=== PATIENT | female | born 1930 | race Caucasian/White ===

== ENCOUNTER 2016-03-26 10:28 | Emergency (ER) | payer MEDICARE ==
[~2016-03-26] VITALS: Ht 152.4 cm; Wt 56.4 kg
[~2016-03-26 10:28] MED LIST: AMLO5TAB22 PO; FOLI1TAB PO; HYDR12.56 PO; OMEP20TA PO; PRED1 PO
[2016-03-26 10:30] VITALS: BP 155/76; PULSE 65; RESP 16; TEMP 98.3; O2SAT 96
[2016-03-26] MEDS ORDERED: TRAM50TA PO (10:52)
[2016-03-26] MEDS ORDERED: FOLI1TAB4 PO (10:52)
[2016-03-26] MEDS ORDERED: HYDR12.56 PO (10:52)
[2016-03-26] MEDS ORDERED: FLUT50SP EACH NARE (10:52)
[2016-03-26] MEDS ORDERED: CALC1TAB87 PO (10:52)
[2016-03-26] MEDS ORDERED: CHOL50006 PO (10:52)
[2016-03-26] MEDS ORDERED: OMEP20TA PO (10:52)
[2016-03-26] MEDS ORDERED: CYAN1000P IM (10:52)
[2016-03-26] MEDS ORDERED: AMLO5TAB2 PO (10:52)
[2016-03-26] MEDS ORDERED: VITA400C70 PO (10:52)
[2016-03-26] MEDS ORDERED: PROBCAP11 (10:52)
[2016-03-26] MEDS ORDERED: METH4TAB6 PO (10:52)
[2016-03-26] MEDS ORDERED: MULT-120 PO (10:52)
[2016-03-26] MEDS ORDERED: SODIUM CHLORIDE 0.9% FLUSH 5 ML FLUSH IVF PRN (11:00)
[2016-03-26 11:14] LABS: AUTOMATED NEUTROPHIL # 4.5 TH/MM3 (1.8-7.7); BASOPHIL % 0.7 % (0.0-2.0); EOSINOPHIL # 0.1 TH/MM3 (0-0.4); EOSINOPHIL % 0.9 % (0.0-4.0); HEMATOCRIT 33.8 % (35.0-46.0); LYMPH % 19.9 % (9.0-44.0); LYMPHOCYTE # 1.2 TH/MM3 (1.0-4.8); MEAN CELL VOLUME 68.2 FL (80.0-100.0); MEAN CORPUSCULAR HEMOGLOBIN 21.6 PG (27.0-34.0); MEAN CORPUSCULAR HGB CONC 31.7 % (32.0-36.0); MONO % 7.3 % (0.0-8.0); NEUT % 71.2 % (16.0-70.0); PLATELET COUNT 267 TH/MM3 (150-450); RED BLOOD COUNT 4.96 MIL/MM3 (4.00-5.30); RED CELL DISTRIBUTION WIDTH 17.4 % (11.6-17.2); WHITE BLOOD COUNT 6.3 TH/MM3 (4.0-11.0)
[2016-03-26 11:17] LABS: HEMO FLAGS AUTO DIFF
[2016-03-26 11:21] LABS: CHLORIDE 105 MEQ/L (98-107); POTASSIUM 3.4 MEQ/L (3.5-5.1); SODIUM (NA) 144 MEQ/L (136-145)
[2016-03-26 11:25] LABS: ANION GAP 8 MEQ/L (5-15); BICARBONATE 31.2 MEQ/L (21.0-32.0); BLOOD UREA NITROGEN 15 MG/DL (7-18)
[2016-03-26 11:28] LABS: ALT (GPT) 15 U/L (10-53); AST (GOT) 17 U/L (15-37); GLOMERULAR FILTRATION RATE 62 ML/MIN (>89)
[2016-03-26 11:29] LABS: TOTAL BILIRUBIN ADULT 0.8 MG/DL (0.2-1.0)
[2016-03-26 11:31] LABS: ALKALINE PHOSPHATASE 56 U/L (45-117)
[2016-03-26 11:33] LABS: ACANTHOCYTES 1+ (NORMAL); KERATOCYTES 1+ (NORMAL); OVALOCYTES 1+ (NORMAL); SCAN/DIFF AUTO DIFF CONFIRMED; TARGET CELLS 2+ (NORMAL)
[2016-03-26 11:43] VITALS: BP 145/70; PULSE 63; RESP 20; O2SAT 96
[2016-03-26] MEDS ORDERED: IOHEXOL 350 MG/ML 10 ML VIAL (for RAD DIAG) IV ONE (12:20)
[2016-03-26 12:36] VITALS: BP 143/60; PULSE 71; RESP 20; O2SAT 96
--- NOTE | 2016-03-26 12:52 | RADHPO ---
EXAM DATE/TIME: 03/26/2016 12:08 [place] COMPARISON: No previous studies available for comparison. INDICATIONS : Lower abdominal pain x 2 weeks. Black stool. IV CONTRAST: 85 cc Omnipaque 350 (iohexol) IV ORAL CONTRAST: No oral contrast ingested. RADIATION DOSE: 6.12 CTDIvol (mGy) MEDICAL HISTORY : Hypertension. Hernia, hiatal. SURGICAL HISTORY : None. ENCOUNTER: Initial ACUITY: 2 weeks PAIN SCALE: 5/10 LOCATION: Bilateral lower quadrant TECHNIQUE: Volumetric scanning of the abdomen and pelvis was performed. Using automated exposure control and ad justment of the mA and/or kV according to patient size, radiation dose was kept as low as reasonably achievable to obtain optimal diagnostic quality images. FINDINGS: Examination of the lung bases demonstrates no abnormality. No pleural fluid is identified. No pulmona ry nodules are present. There is hypodensity within the liver compatible with cyst measuring 6 mm in segment 7. The spleen is normal in size and free of focal defects. The gallbladder and pancreas are u nremarkable. No intrahepatic or extrahepatic ductal dilatation is seen. The adrenal glands are unrema rkable. There are simple cysts on the right the largest measuring 5 cm in the lower pole. The left ki dney is unremarkable. Examination of the pelvis demonstrates no evidence of free fluid or pelvic mass. No abnormally enlarg ed inguinal or retroperitoneal lymph nodes are present. The bladder is unremarkable. There is diverti culosis without evidence of diverticulitis. There is a 1.5 cm mass related to the tip of the appendix which may reflect a mucocele or other past including carcinoid. MRI is recommended for further evaluation if clinically indicated. CONCLUSION: 1. No evidence of acute abdominal or pelvic process. No masses are identified. 2. Diverticulosis without evidence of diverticulitis. 3. Mass involving the appendiceal tip. Differential diagnosis includes mucocele as well as carcinoid. MRI is recommended for further evaluation if clinically indicated. Baldomero Fernandez MD on March 26, 2016 at 12:45 Board Certified Radiologist. This report was verified electronically.
--- NOTE | 2016-03-26 13:05 | PD ---
HPI Chief Complaint: Abdominal Pain Time Seen by Provider: 10:53 Travel History International Travel<30 days: No Contact w/Intl Traveler<30days: No Traveled to known affect area: No History of Present Illness HPI Send 85 year-old woman who presents to the emergency department complaining of abdominal pain and dark stools ongoing for the past week or so. States she initially had an episode of dark stools with diarrhea. Following that she had persistent lower abdominal discomfort that she describes as gas-like bloating. She's also had persistent dark stools not quite normal but not really diarrhea either. She's had nausea but no vomiting. She's felt weak. No fevers or chills. She is a history of GERD, beta thalassemia, as well as arthritis. She is on prednisone for the arthritis 2 mg daily. She was on omeprazole for the GERD but stopped that a couple months ago on her own. She has been taking Pepto -Bismol for the past week but states that the dark stool started prior to taking the Pepto-Bismol. No other complaints. History Past Medical History Narrative Medical GERD Beta thalassemia Arthritis Menopausal: Yes Social History Alcohol Use: No Tobacco Use: No Allergies-Medications (Allergen,Severity, Reaction): Coded Allergies: YAZAN Inhibitors (Verified Allergy, Severe, Cough, 03/26/16) Macrodantin (Verified Allergy, Severe, 03/26/16) Amoxicillin (Verified Allergy, Intermediate, Rash, 03/26/16) Reported Meds & Prescriptions Reported Meds & Active Scripts Active Reported Vitamin E-400 (Vitamin E) 400 Unit Cap 1 Tab PO Vitamin D (Cholecalciferol) 5,000 Unit Tab 1 Tab PO WEEKLY Tramadol (Tramadol HCl) 50 Mg Tab 50 Mg PO Q6H PRN Probiotic (Probiotic Product) 1 Cap Cap Multivitamin Women (Multiple Vitamins W/ Minerals) 1 Tab Tab 1 Tab PO DAILY Omeprazole 20 Mg Tab 20 Mg PO DAILY Methylprednisolone 4 Mg Tab 2 Mg PO DAILY Hydrochlorothiazide 12.5 Mg Tab 12.5 Mg PO DAILY Folate (Folic Acid) 1 Mg Tab 1 Mg PO DAILY Fluticasone Nasal [place] 50 Mcg/Act Naspr 50 Mcg EACH NARE BID 50 mcg/spray Cyanocobalamin Inj (Cyanocobalamin) 1,000 Mcg/Ml Inj 1,000 Mcg IM Q30D Calcium 600 with Vitamin D (Calcium Carbonate-Cholecalciferol) 600-400 mg-Unit Tab 1 Tab PO DAILY Amlodipine (Amlodipine Besylate) 5 Mg Tab 5 Mg PO DAILY Review of Systems Except as stated in HPI: all other systems reviewed are Neg Physical Exam Narrative GENERAL: Well-appearing 85 year-old woman, no acute distress. SKIN: Warm and dry. HEAD: Atraumatic. Normocephalic. EYES: Pupils equal and round. No scleral icterus. No injection or drainage. ENT: No nasal bleeding or discharge. Mucous membranes pink and moist. NECK: Trachea midline. No JVD. CARDIOVASCULAR: Regular rate and rhythm. No murmur appreciated. RESPIRATORY: No accessory muscle use. Clear to auscultation. Breath sounds equal bilaterally. GASTROINTESTINAL: Abdomen soft. Minimal lower abdominal tenderness palpation. No rebound or guarding. RECTAL: Some hemorrhoids in the rectal vault. Then clear mucus in the rectal vault. Guaiac negative. No real stool however. MUSCULOSKELETAL: No obvious deformities. No edema. NEUROLOGICAL: Awake and alert. No obvious cranial nerve deficits. Motor grossly within normal limits. Normal speech. Data Data Last Documented VS Vital Signs Date Time Temp Pulse Resp B/P Pulse Ox O2 Delivery O2 Flow Rate FiO2 03/26/16 13:28 53 20 150/83 97 03/26/16 10:30 98.3 Orders Complete Blood Count With Diff (03/26/16 10:53) Comprehensive Metabolic Panel (03/26/16 10:53) Lipase (03/26/16 10:53) Lactic Acid (03/26/16 10:53) Urinalysis - C+S If Indicated (03/26/16 10:53) Iv Access Insert/Monitor (03/26/16 10:53) NPO (03/26/16 10:53) Sodium Chloride 0.9% Flush (Ns Flush) (03/26/16 11:00) Ct Abd/Pel W Iv Contrast(Rout) (03/26/16 ) Iohexol 350 Inj (Omnipaque 350 Inj) (03/26/16 12:20) Labs Laboratory Tests Test 03/26/16 03/26/16 11:00 13:18 White Blood Count 6.3 TH/MM3 Red Blood Count 4.96 MIL/MM3 Hemoglobin 10.7 GM/DL Hematocrit 33.8 % Mean Corpuscular Volume 68.2 FL Mean Corpuscular Hemoglobin 21.6 PG Mean Corpuscular Hemoglobin 31.7 % Concent Red Cell Distribution Width 17.4 % Platelet Count 267 TH/MM3 Mean Platelet Volume 9.4 FL Neutrophils (%) (Auto) 71.2 % Lymphocytes (%) (Auto) 19.9 % Monocytes (%) (Auto) 7.3 % Eosinophils (%) (Auto) 0.9 % Basophils (%) (Auto) 0.7 % Neutrophils # (Auto) 4.5 TH/MM3 Lymphocytes # (Auto) 1.2 TH/MM3 Monocytes # (Auto) 0.5 TH/MM3 Eosinophils # (Auto) 0.1 TH/MM3 Basophils # (Auto) 0.0 TH/MM3 CBC Comment AUTO DIFF Differential Comment AUTO DIFF CONFIRMED Target Cells 2+ Ovalocytes 1+ Acanthocytes 1+ Keratocytes 1+ Sodium Level 144 MEQ/L Potassium Level 3.4 MEQ/L Chloride Level 105 MEQ/L Carbon Dioxide Level 31.2 MEQ/L Anion Gap 8 MEQ/L Blood Urea Nitrogen 15 MG/DL Creatinine 0.86 MG/DL Estimat Glomerular Filtration 62 ML/MIN Rate Random Glucose 98 MG/DL Lactic Acid Level 0.8 mmol/L Calcium Level 8.9 MG/DL Total Bilirubin 0.8 MG/DL Aspartate Amino Transf 17 U/L (AST/SGOT) Alanine Aminotransferase 15 U/L (ALT/SGPT) Alkaline Phosphatase 56 U/L Total Protein 7.4 GM/DL Albumin 3.6 GM/DL Lipase 140 U/L Urine Collection Type CLEAN CATCH Urine Color STRAW Urine Turbidity CLEAR Urine pH 7.5 Urine Specific [place] 1.028 Urine Protein NEG mg/dL Urine Glucose (UA) NEG mg/dL Urine Ketones NEG mg/dL Urine Occult Blood NEG Urine Nitrite NEG Urine Bilirubin NEG Urine Leukocyte Esterase SMALL Urine WBC 0-2 /hpf Urine Squamous Epithelial 0-5 /hpf Cells Microscopic Urinalysis Comment CULT NOT INDICATED MDM Medical Decision Making Medical Screen Exam Complete: Yes Emergency Medical Condition: Yes Interpretation(s) LABS: CBC remarkable for mild microcytic anemia, consistent with previous CMP is unremarkable Lactate 0.[address] abdomen and pelvis: Negative for acute process. Diverticulosis without diverticulitis. There is a mass of the appendiceal tip, differential diagnosis includes mucocele as well as carcinoid, consider MRI. UA negative. Differential Diagnosis Diverticulitis, colitis, GI bleed, UTI, other Narrative Course Medical decision making INITIAL: 85 year-old woman presents to the emergency department complaining of lower abdominal discomfort and loose stools were dark in color for the past week or so. Some nausea. She looks well. CT scan doesn't show any diverticulitis but does show a small mass in the appendiceal tip though need further evaluation. She has described some unusual flushing symptoms or could be consistent with carcinoid syndrome. Looks otherwise well. She has some chronic anemia which is likely related to her beta thalassemia. We will recommend outpatient follow-up. Diagnosis Primary Impression: Abdominal pain Qualified Code: R10.30 - Lower abdominal pain Additional Instructions: Follow-up with your primary doctor in the next 2-3 days. Return to the emergency department for any worsening abdominal pain, bloody diarrhea, or any other new or worsening symptoms. Drink plenty of fluids and stay well-hydrated. Disposition: 01 DISCHARGE HOME Condition: Stable Luis Daniel MD Mar 26, 2016 13:04
[2016-03-26 13:28] VITALS: BP 150/83; PULSE 53; RESP 20; O2SAT 97
[2016-03-26 13:39] LABS: BLOOD, URINE NEG (NEG); GLUCOSE,URINE NEG (NEG); KETONE, URINE NEG (NEG); NITRITE,URINE NEG (NEG); PH, URINE 7.5 (5.0-8.5)
[2016-03-26 13:44] LABS: METHOD OF COLLECTION CLEAN CATCH; URINE COLOR STRAW (YELLW/STRAW)
[2016-03-26 13:45] LABS: COMMENT (UR) CULT NOT INDICATED; CULTURE IF INDICATED CULT NOT INDICATED; SQUAMOUS EPITHELIAL CELL URINE 0-5 /hpf (0-5); WBC, URINE 0-2 /hpf (0-5)
[2016-03-26 14:12] VITALS: BP_SYST 74
== END 2016-03-26 14:20 | disposition home or self-care (01) ==
LOC: PHED 10:28
DX: R10.30 Lower abdominal pain, unspecified (principal); D56.1 Beta thalassemia
CPT/HCPCS: 74177; 80053; 81001; 83605; 83690; 85025; 99285; Q9967

== ENCOUNTER → 2016-04-23 | Outpatient (CLI) | payer MEDICARE ==
[~2016-04-23] MED LIST changes: +AMLO5TAB2 PO; -AMLO5TAB22 PO; +CALC1TAB87 PO; +CHOL50006 PO; +CYAN1000P IM; +FLUT50SP EACH NARE; -FOLI1TAB PO; +FOLI1TAB4 PO; +METH4TAB6 PO; +MULT-120 PO; -PRED1 PO; +PROBCAP11; +TRAM50TA PO; +VITA400C70 PO
[2016-04-23 13:25] LABS: BACTERIA, URINE MANY /hpf; BLOOD, URINE NEG (NEG); COMMENT (UR) CULTURE INDICATED; CULTURE IF INDICATED CULTURE INDICATED; GLUCOSE,URINE NEG (NEG); HYALINE CAST, URINE 1 /lpf (RARE); KETONE, URINE NEG (NEG); MUCUS URINE FEW /lpf (OCC); NITRITE,URINE NEG (NEG); RENAL EPITHELIAL CELLS <1 /hpf; SQUAMOUS EPITHELIAL CELL URINE 1 /hpf (0-5); TRANSITIONAL EPI CELLS, URINE <1 /hpf; URINE COLOR YELLOW (YELLW/STRAW)
== END ==
LOC: PLAB 09:32
PROVIDERS: ATTEND Internal Medicine
DX: I10 Essential (primary) hypertension (principal); R35.0 Frequency of micturition; R19.03 Right lower quadrant abdominal swelling, mass and lump
CPT/HCPCS: 81001; 87077; 87086; 87186

== ENCOUNTER 2016-05-15 07:30 | Observation (INO) | payer MEDICARE ==
[~2016-05-15] VITALS: Ht 152.4 cm; Wt 54.1 kg
[2016-05-15] MEDS ORDERED: BUPIVACAINE/EPINEPHRINE 0.5% PF 30 ML VIAL ONE (07:49)
[2016-05-15] MEDS ORDERED: LACTATED RINGER'S 1000 ML IV SCH (08:00)
[2016-05-15] MEDS ORDERED: VANCOMYCIN HCL 1000 MG ON-CALL/NS 250 ML IV SCH ×2 (08:00)
[2016-05-15] MEDS ORDERED: SODIUM CHLORID 0.9% 500 ML IV SCH (08:00)
[2016-05-15] MEDS ORDERED: INSULIN HUMAN REGULAR 1,000 UNITS/10 ML VIAL SQ PRN (08:00)
[2016-05-15] MEDS ORDERED: METOPROLOL TARTRATE 25 MG TAB PO PRN (08:00)
[2016-05-15 08:58] LABS: AUTOMATED NEUTROPHIL # 4.7 TH/MM3 (1.8-7.7); BASOPHIL # 0.1 TH/MM3 (0-0.2); EOSINOPHIL # 0.1 TH/MM3 (0-0.4); EOSINOPHIL % 1.4 % (0.0-4.0); HEMATOCRIT 32.7 % (35.0-46.0); LYMPH % 16.9 % (9.0-44.0); LYMPHOCYTE # 1.1 TH/MM3 (1.0-4.8); MEAN CELL VOLUME 66.4 FL (80.0-100.0); MEAN CORPUSCULAR HEMOGLOBIN 21.2 PG (27.0-34.0); MEAN CORPUSCULAR HGB CONC 31.9 % (32.0-36.0); MONO % 8.5 % (0.0-8.0); NEUT % 72.2 % (16.0-70.0); PLATELET COUNT 246 TH/MM3 (150-450); RED BLOOD COUNT 4.92 MIL/MM3 (4.00-5.30); RED CELL DISTRIBUTION WIDTH 18.1 % (11.6-17.2); WHITE BLOOD COUNT 6.5 TH/MM3 (4.0-11.0)
[2016-05-15 09:00] LABS: BICARBONATE 30.3 MEQ/L (21.0-32.0); HEMO FLAGS AUTO DIFF; POTASSIUM 3.2 MEQ/L (3.5-5.1)
[2016-05-15] MEDS ORDERED: fentaNYL CITRATE 250 MCG/5 ML AMP ONE (09:32)
[2016-05-15 09:55] LABS: BURR CELLS 1+ (NORMAL); OVALOCYTES 1+ (NORMAL)
[2016-05-15 09:56] LABS: KERATOCYTES OCC (NORMAL); SCAN/DIFF AUTO DIFF CONFIRMED
[2016-05-15] MEDS ORDERED: PROPOFOL 200 MG/20 ML AMP IV ONE (10:45)
[2016-05-15] MEDS ORDERED: LACTATED RINGER'S 1000 ML INJ 1,000 ML IV ONE (10:46)
[2016-05-15] MEDS ORDERED: ONDANSETRON HCL 4 MG/2 ML VIAL IV PUSH ONE (10:46)
[2016-05-15] MEDS ORDERED: ePHEDrine/NS 25 MG/5 ML SYR IV ONE (10:46)
[2016-05-15] MEDS ORDERED: NEOSTIGMINE 3 MG/3 ML SYR IV ONE ×2 (10:46→12:00)
[2016-05-15] MEDS ORDERED: BENZOCAINE 20% ORAL SPR 60 ML CAN MT PRN (11:30)
[2016-05-15] MEDS ORDERED: NALOXONE HCL 0.4 MG/ML AMP IV PRN (11:30)
[2016-05-15] MEDS ORDERED: ACETAMINOPHEN/HYDROcodone 325 MG/5 MG TAB PO PRN (11:30)
[2016-05-15] MEDS ORDERED: diphenhydrAMINE HCL 50 MG/ML VIAL IV PRN (11:30)
[2016-05-15] MEDS ORDERED: SODIUM CHLORIDE 0.9% FLUSH 10 ML FLUSH IV FLUSH PRN (11:30)
[2016-05-15] MEDS ORDERED: ONDANSETRON HCL 4 MG/2 ML VIAL IV PRN (11:30)
[2016-05-15] MEDS ORDERED: Post-op Orders (for Pharmacy) MISC XX ONE (11:30)
[2016-05-15] MEDS ORDERED: MORPHINE SULFATE 4 MG/ML INJ IV PRN (11:30)
[2016-05-15] MEDS ORDERED: MAGNESIUM SULFATE 1 GM PREMIX 100 ML ONE (11:34)
[2016-05-15] MEDS ORDERED: POTASSIUM CHLOR 20 MEQ PREMIX 100 ML ONE (11:34)
--- NOTE | 2016-05-15 11:41 | HHI.PR ---
Immediate Post Op Note Procedure Date: May 15, 2016 Pre Op Diagnosis: (1) Abdominal pain (2) Appendiceal tumor Post Op Diagnosis: (1) Abdominal pain (2) Appendiceal tumor Surgeon: Mauricio Lin Life Skills Teacher(s): staff Procedure: Laparoscopic Appendectomy Findings: mass in tip of appendix, some adhesions Complications: none Specimen(s) removed: appendix Estimated blood loss: 10ml Anesthesia: General, Local Drains: None IVF Patient to: PACU Patient Condition: Good Mauricio Lin MD May 15, 2016 11:41
[2016-05-15] MEDS ORDERED: AMIODARONE 150 MG/D5W 97 ML BOLUS 10 MINUTES IV ONE ×2 (11:45)
[2016-05-15] MEDS ORDERED: DO NOT ADM ANY ANTICOAGULANT DRUGS XX PRN (11:45)
[2016-05-15] MEDS ORDERED: MAGNESIUM SULFATE 1 GM PREMIX 100 ML IV ONE (11:45)
[2016-05-15] MEDS ORDERED: POTASSIUM CHLOR 20 MEQ PREMIX 100 ML IV ONE (11:45)
[2016-05-15] MEDS: SODIUM CHLOR 0.9% 1000 ML INJ 1,000 ML IV SCH ×2 (12:08→16:44)
[2016-05-15] MEDS: SODIUM CHLORIDE 0.9% FLUSH 10 ML FLUSH IV FLUSH SCH ×2 (12:08→20:44)
[2016-05-15] MEDS: ACETAMINOPHEN 1000 MG/100 ML VIAL IV SCH ×2 (12:50→16:43)
[2016-05-15] MEDS ORDERED: PANTOPRAZOLE SOD 40 MG DELAYED RELEASE TAB PO SCH (13:00)
[2016-05-15 16:00] VITALS: BP 117/58; PULSE 63; RESP 16; TEMP 96; O2SAT 94
[2016-05-15] MEDS ORDERED: CYANOCOBALAMIN 1000 MCG/ML VIAL IM SCH (16:00)
[2016-05-15] MEDS ORDERED: PILL SPLITTER OTHER PRN (16:00)
[2016-05-15] MEDS ORDERED: POTASSIUM CHLORIDE 20 MEQ CONTROLLED RELEASE TAB PO ONE (16:00)
[2016-05-15] MEDS: DOCUSATE SODIUM 100 MG CAP PO SCH (16:42)
--- NOTE | 2016-05-15 17:14 | MB ---
cc: SUZAN EDGE MD DATE OF CONSULTATION 05/15/16 1928 DATE OF ADMISSION 04/17/2016 REASON FOR CONSULTATION Medical management. HISTORY OF PRESENT ILLNESS This is a pleasant 85-year-old white female who had initially started with some right lower quadrant abdominal pain for the past week her two. The patient also has a history and bouts of constipation. She took some mag citrate the day before admission to the hospital with positive results states that she also was having some generalized weakness and fatigue but no fevers. The patient was followed up per GI and recently had an EGD and colonoscopy. At that point, the abnormal findings were seen on her appendix. The patient did note some diverticulosis without evidence of diverticulitis and a small mass was noted at the appendageal tip. The patient was seen for surgical consult and had a laparoscopic appendectomy done today. The patient is resting in her room, alert and oriented, tolerated surgical procedure well. Family is at her bedside. PAST MEDICAL HISTORY 1. Gastroesophageal reflux disease, 2. Arthritis. 3. Theta thalassemia. 4. Hypertension 5. Seasonal allergies ALLERGIES YAZAN INHIBITORS AMOXICILLIN MACRODANTIN SOCIAL HISTORY The patient has no use of tobacco, alcohol or illicit drugs. MEDICATIONS 1. Vitamins. 2. Tramadol 3. Probiotics. 4. Omeprazole 5. Methylprednisolone. 6. Hydrochlorothiazide. 7. Folate. 8. Fluconazole Nasal spray. 9. mine 10. Calcium. 11. Amlodipine. REVIEW OF SYSTEMS A 12-point review was done. Positives noted are some right lower quadrant and generalized abdominal discomfort status post her surgery, increased mucoid secretions from chronic allergies, mild shortness of breath which she states is chronic, constipation. Otherwise, negative exam. PHYSICAL EXAMINATION VITAL SIGNS: Temperature is 97.8, pulse 74, respirations 16, blood pressure 103/58 and 100/60, O2 sat 100 on 2 liters nasal cannula. GENERAL: Thin but well-nourished 85-year-old white female looks younger than her stated age resting in the bed, alert, oriented, cooperative. HEENT: Atraumatic, normocephalic. Mucous membranes are moist. NECK: Supple. CARDIAC: Heart sounds S1-S2, soft systolic murmur noted at the lower left sternal border. She has trace of edema. Pulses are intact. PULMONARY: Essentially clear anteriorly and posteriorly. No wheezes, rales or rhonchi. ABDOMEN: Flat, soft, nontender, nondistended. Hypoactive bowel sounds. She does three small laparoscopic incisions which are open to air, clean, dry and intact. MUSCULOSKELETAL: She moves her extremities with purpose. Equal hand in house cra. She can overcome resistance. NEUROLOGIC: She is alert, oriented, a good historian. Speech is clear. No neuro deficits. PSYCHIATRIC: Appropriate affect. LABORATORY DATA WBC count 6.5, RBC 4.92, hemoglobin 10.4, hematocrit 32.7, platelet count 246. Chemistry - sodium 141, potassium 3.2, chloride 101, carbon dioxide 30.3, anion gap 10, BUN 17, creatinine 1.02, GFR 51. Random glucose 98, calcium 9.6. IMAGING STUDIES None for now. ASSESSMENT/PLAN The patient is status post laparoscopic appendectomy. her pain management and postop instructions will be given by her surgeon. We will monitor her vital signs which are currently within normal ranges. The patient is afebrile, pulse and blood pressure are normal. We will evaluate labs. Currently the patient does show some hypokalemia. We will supplement her potassium and recheck her potassium level in the morning. The patient will need cardiac monitoring. Her medications have been reconciled as warranted. DVT prophylaxis with Lovenox 40 mg. Protonix for PUD prophylaxis. PLAN The patient will be out of bed, receive a heart healthy diet. The patient is full code, full aggressive care, and we will monitor her medical needs. We will also place the patient on bowel regimen and monitor for any needs of constipation. Dictated by NICOLE Carlton Suzan Edge MD JP/ /3:41 PM /8:17 AM Patient seen and examined on the day of admission as above. Above-note was not available before to sign Chart was reviewed on day of admission including but not limited to labs radiological data and medications Discussed with RN and NICOLE about plan of care Discussed with patient MTDD
[2016-05-15 20:00] VITALS: BP 108/58; PULSE 63; RESP 20; TEMP 97.8; O2SAT 96
[2016-05-15] MEDS: FLUTICASONE PROPIONATE 50 MCG/ACT 16 GM NASAL SPRAY EACH NARE SCH (20:44)
[2016-05-15 20:45] VITALS: PULSE 54
[2016-05-16] VITALS: BP 124/61; PULSE 59; RESP 20; TEMP 98; O2SAT 97
[2016-05-16] MEDS: ACETAMINOPHEN 1000 MG/100 ML VIAL IV SCH ×2 (00:22→06:41)
[2016-05-16 04:00] VITALS: BP 119/47; PULSE 51; RESP 20; TEMP 98.2; O2SAT 98
[2016-05-16 05:12] LABS: BICARBONATE 31.6 MEQ/L (21.0-32.0); POTASSIUM 3.5 MEQ/L (3.5-5.1)
[2016-05-16] MEDS: SODIUM CHLOR 0.9% 1000 ML INJ 1,000 ML IV SCH ×2 (06:41→08:37)
[2016-05-16 08:00] VITALS: BP 118/58; PULSE 62; RESP 16; TEMP 96.5; O2SAT 93
[2016-05-16 08:04] VITALS: O2SAT 93
[2016-05-16] MEDS: DOCUSATE SODIUM 100 MG CAP PO SCH (08:37)
[2016-05-16] MEDS: SODIUM CHLORIDE 0.9% FLUSH 10 ML FLUSH IV FLUSH SCH (08:37)
[2016-05-16] MEDS: FLUTICASONE PROPIONATE 50 MCG/ACT 16 GM NASAL SPRAY EACH NARE SCH (08:37)
[2016-05-16] MEDS ORDERED: HYDROCHLOROTHIAZIDE 12.5 MG CAP PO SCH (09:00)
[2016-05-16] MEDS ORDERED: PANTOPRAZOLE SOD 20 MG DELAYED RELEASE TAB PO SCH (09:00)
[2016-05-16] MEDS ORDERED: methylPREDNISolone 4 MG TAB PO SCH (09:00)
[2016-05-16] MEDS ORDERED: FOLIC ACID 1 MG TAB PO SCH (09:00)
[2016-05-16] MEDS ORDERED: amLODIPine BESYLATE 5 MG TAB PO SCH (09:00)
[2016-05-16] MEDS ORDERED: ENOXAPARIN SODIUM 40 MG/0.4 ML SYRINGE SQ SCH (10:00)
--- NOTE | 2016-05-16 10:12 | HHI.PR ---
Subjective Remarks Resting in bed Comfortable Alert responsive Family in room Eating her breakfast solid food (Monserrat Adams) Objective Objective Results - Vital Signs Date Time Temp Pulse Resp B/P Pulse Ox O2 Delivery O2 Flow Rate FiO2 05/16/16 08:04 93 21 05/16/16 08:00 96.5 62 16 118/58 93 05/16/16 04:00 98.2 51 20 119/47 98 05/16/16 00:00 98.0 59 20 124/61 97 05/15/16 20:45 54 05/15/16 20:00 97.8 63 20 108/58 96 05/15/16 16:00 96.0 63 16 117/58 94 05/15/16 13:45 70 16 100/60 100 Nasal Cannula 2 05/15/16 13:30 97.8 74 12 103/58 99 Nasal Cannula 2 05/15/16 13:15 74 17 102/53 95 Nasal Cannula 2 05/15/16 13:00 64 12 103/60 94 Nasal Cannula 2 05/15/16 12:45 63 16 104/63 93 Nasal Cannula 2 05/15/16 12:30 69 14 96/55 94 Nasal Cannula 2 05/15/16 12:15 67 15 93/53 94 Nasal Cannula 2 05/15/16 12:00 63 13 93/51 95 Nasal Cannula 2 05/15/16 11:45 75 15 108/56 95 Nasal Cannula 2 05/15/16 11:30 68 14 109/64 98 Nasal Cannula 2 05/15/16 11:15 80 13 107/66 94 Nasal Cannula 2 05/15/16 11:00 79 16 130/77 97 Nasal Cannula 2 05/15/16 10:54 97.8 95 15 130/65 97 Nasal Cannula 2 I/O 05/15/16 05/15/16 05/15/16 05/16/16 05/16/16 05/16/16 07:00 15:00 23:00 07:00 15:00 23:00 Intake Total 1200 ml 599 ml 543 ml Output Total 900 ml 1000 ml Balance 1200 ml -301 ml -457 ml Intake Oral 240 ml 0 ml IV Total 200 ml 359 ml 543 ml Other 1000 ml Output Urine Total 900 ml 1000 ml # Voids 1 # Bowel Movements 1 (Monserrat Adams) Result Diagram: 05/15/16 0819 05/16/16 0334 ROS General: Weakness (generalized mild), Other (10 point ROS done positives include some generalized weakness minimal mild abdominal pain otherwise systems unremarkable or negative) GI: Abdominal Pain (mild status post laparoscopic appendectomy), Other (no BM yet) (Monserrat Adams) Physical Exam Physical Exam PHYSICAL EXAMINATION GENERAL: This is a well-developed, well-nourished female who appears to be in no acute distress. She is alert and awake, responsive HEAD: Normocephalic without any lesion or mass noted. Facial features appear symmetric. OROPHARYNGEAL: Oropharynx without erythema or edema. NECK: Supple. No nuchal rigidity or lymphadenopathy. Trachea midline without deviation. CARDIAC: Regular rhythm, regular rate, S1 and S2 are heard. Murmur none; no gallops or rubs. LUNGS: Clear to auscultation bilaterally. No wheeze, no rhonchi or rale. No use of accessory muscles on inspiration or expiration. ABDOMEN: Soft, nontender, no organomegaly or masses. Bowel sounds are heard in all four quadrants. Small surgical incisions 3, open to air clean dry and intact no erythema no edema EXTREMITIES: no edema. Pulses equal bilateral. NEUROLOGICAL: Patient mood and affect appropriate. No focal deficit SKIN:Warm and moist Objective Remarks I'm feeling really good today. (Monserrat Adams) A/P Assessment and Plan status post laparoscopic appendectomy. her pain management and postop instructions will be given by her surgeon. Appreciate input vital signs reviewed. Patient is afebrile, all other vitals are within normal range labs. Hypokalemia resolved potassium level 3.5. Acute kidney injury normal B UN and creatinine today . DVT prophylaxis with Lovenox Protonix for PUD prophylaxis. Increase activity day with patient to be up in room in chair. Explained to patient and daughter Appetite good eating solid food Bowel regimen, no BM yet, we will monitor Discharge planning within the next day or 2, when released by surgeon Discharge Planning Initiated Discussed With: Nurse, Family, Other (Dr. Edge, seen on his behalf) (Monserrat Adams) Assessment and Plan pt seen and examined pt is walking around without any problem pain is controlled examined as above meds and labs reviwed notes reviewed plan of care dora luna pt is ok medically for dc home to follow pcp and sx as oupt (Anais Edge MD) Monserrat Adams May 16, 2016 10:12 Anais Edge MD May 16, 2016 12:48
--- NOTE | 2016-05-16 10:54 | EKG ---
Date Performed: 05/15/2016 Time Performed: 11:23:02 PTAGE: 85 years EKG: ATRIAL FIBRILLATION BORDERLINE LEFT AXIS DEVIATION ABNORMAL RHYTHM ECG PREVIOUS TRACING : 05/15/2016 08.05 DOCTOR: Yamile De Leon Interpretating Date/Time 05/16/2016 10:53:02
--- NOTE | 2016-05-16 10:59 | EKG ---
Date Performed: 05/15/2016 Time Performed: 08:05:13 PTAGE: 85 years EKG: Sinus rhythm WITH FIRST DEGREE AV BLOCK MARKED LEFT AXIS DEVIATION POSSIBLE ANTERIOR MYOCARDIAL INFARCTION , PROB ABLY OLD ABNORMAL ECG PREVIOUS TRACING : 07/18/2013 20.09 DOCTOR: Yamile De Leon Interpretating Date/Time 05/16/2016 10:57:03
--- NOTE | 2016-05-16 12:35 | HHI.PR ---
Subjective Subjective Notes feels fine, wants to go home, no problems at all Objective Vitals/I&O Vital Signs Date Time Temp Pulse Resp B/P Pulse Ox O2 Delivery O2 Flow Rate FiO2 05/16/16 08:04 93 21 05/16/16 08:00 96.5 62 16 118/58 05/15/16 13:45 Nasal Cannula 2 Labs Laboratory Tests Test 05/16/16 03:34 Sodium Level 142 Potassium Level 3.5 Chloride Level 106 Carbon Dioxide Level 31.6 Anion Gap 4 Blood Urea Nitrogen 11 Creatinine 0.84 Estimat Glomerular Filtration 64 Rate Random Glucose 69 Calcium Level 8.3 Cardiovascular: Regular Abdomen: Non-distended, BS normal A/P Assessment and Plan S/P lap appy. post op Afib stable for DC home if ok with Medicine no problems per RN on monitor. Pt wants to go home FU 1 week in office George Ellison MD May 16, 2016 12:34
[2016-05-18] MEDS ORDERED: CHOLECALCIFEROL (VIT D3) 5000 UNIT CAP PO SCH (17:00)
--- NOTE | 2016-05-19 11:07 | MP ---
cc: CHRISTIAN PUGA DATE OF OPERATION 05/15/2016 PREOPERATIVE DIAGNOSIS Appendiceal mass. POSTOPERATIVE DIAGNOSIS Appendiceal mass. PROCEDURE Laparoscopic appendectomy. ATTENDING SURGEON MD Delia NITROGLYCERIN SEPARATOR OPERATOR Staff. ANESTHESIA General and local anesthetic. COMPLICATIONS None. BLOOD LOSS 10 cc. FINDINGS A few small adhesions. Normal-appearing appendix with a approximately a 1 and 2 cm mass at the tip of the appendix. No other intraabdominal pathology. INDICATION FOR PROCEDURE The patient is an 85-year-old female who underwent workup for some right lower quadrant abdominal pain. Imaging did show a fluid-filled tip of the appendix concerning for mass versus mucocele. There is no other evidence of any abnormalities. The patient underwent a colonoscopy which was unremarkable. The patient is referred from to me for further evaluation. I have discussed with the patient about the risks, benefits and alternatives to surgery. The patient did consent undergoing laparoscopic appendectomy only for diagnosis and reserving any further surgery based on results of appendectomy. PROCEDURE After informed consent was obtained, the patient was taken to the operating room, placed in a supine position, placed under general endotracheal anesthesia. The patient's abdomen was prepped and draped in sterile fashion. Time-out was performed. The abdomen was entered through Landin direct entry technique below the umbilicus. 0.5% Marcaine was used at this site as well as all port sites. We directly opened the fascia with the 11-blade scalpel and bluntly entered the abdominal cavity, placed a 10-mm balloon trocar into the abdomen under direct visualization. We insufflated the abdomen and surveyed the abdomen with a 5-mm, 30-degree camera. He did then placed a 5-mm port in the left lower quadrant and a 5-mm port in suprapubic position under direct visualization of the laparoscope. We were able to manipulate the bowel, we found the appendix quite easily. This was normal with the exception of the mass at the tip of the appendix which did appeared benign and appeared to be into the lumen as the serosa of the appendix appeared normal. There did not appear to be any lymphadenopathy. There were some adhesions of the right colon tenting the right colon up against the abdominal wall and these were taken down bluntly without difficulty. There was no evidence of any intraabdominal disease, no peritoneal disease, no mucin, no liver metastasis or any sign of malignancy. We turned our attention towards appendectomy. We used a white load to take the appendix at the base of the appendix as it splayed into the cecum without difficulty. We then were able to tent up the mesentery of the appendix and take this with a webb load on the [facility] stapler. The appendix was removed with an EndoCatch bag through the periumbilical Landin port. The patient did cauterize a small amount of oozing from the abdominal wall from the adhesiolysis. Ray-Jairo was used to blot up a few cc of blood and blood clots and was removed through the 10 port. At this point in time we turned our attention towards closure. We removed all ports under visualization of the laparoscope and expressed pneumoperitoneum. We closed the fascia of the Landin port with two interrupted 0 Vicryl sutures at the fascial layer, closed the skin with 4-0 Monocryl and Dermabond. The patient was discontinued from anesthesia and taken to the PACU in stable condition. The patient tolerated the procedure well. COMPLICATIONS No apparent complications. COUNTS All counts were correct. I was present and scrubbed for the entire procedure. MD MARLEY Mccabe/CARRI /11:38 AM /10:52 AM
== END 2016-05-16 13:58 | disposition home or self-care (01) ==
LOC: HSDC 07:30 → HSDI 11:31 → N07B 13:59
PROVIDERS: ADMIT Surgery; ATTEND Surgery
DX: D12.1 Benign neoplasm of appendix (principal); K66.0 Peritoneal adhesions (postprocedural) (postinfection); K21.9 Gastro-esophageal reflux disease without esophagitis; M19.90 Unspecified osteoarthritis, unspecified site; D56.9 Thalassemia, unspecified; I10 Essential (primary) hypertension; Z88.0 Allergy status to penicillin; Z88.8 Allergy status to other drugs, medicaments and biological substances
CPT/HCPCS: 80048; 85025; 88304; 93005; 94150; G0378; J0131; J0282; J1650; J2405; J2710; J3010; J3370; J3420; J3475; J3480; J7030; J7050; J7120; J7509

== ENCOUNTER → 2016-10-16 | Outpatient (CLI) | payer MEDICARE ==
[~2016-10-16] MED LIST changes: -CALC1TAB87 PO; -MULT-120 PO; -PROBCAP11; -TRAM50TA PO
[2016-10-16 13:13] LABS: AUTOMATED NEUTROPHIL # 3.1 TH/MM3 (1.8-7.7); BASOPHIL # 0.1 TH/MM3 (0-0.2); EOSINOPHIL # 0.1 TH/MM3 (0-0.4); EOSINOPHIL % 2.3 % (0.0-4.0); HEMATOCRIT 30.9 % (35.0-46.0); HEMO FLAGS DIFF FINAL; LYMPH % 26.3 % (9.0-44.0); LYMPHOCYTE # 1.4 TH/MM3 (1.0-4.8); MEAN CELL VOLUME 66.9 FL (80.0-100.0); MEAN CORPUSCULAR HEMOGLOBIN 20.8 PG (27.0-34.0); MONO % 9.8 % (0.0-8.0); NEUT % 60.6 % (16.0-70.0); PLATELET COUNT 240 TH/MM3 (150-450); RED BLOOD COUNT 4.62 MIL/MM3 (4.00-5.30); RED CELL DISTRIBUTION WIDTH 17.9 % (11.6-17.2); WHITE BLOOD COUNT 5.2 TH/MM3 (4.0-11.0)
[2016-10-16 13:18] LABS: ALT (GPT) 17 U/L (10-53); ANION GAP 7 MEQ/L (5-15); AST (GOT) 16 U/L (15-37); BICARBONATE 30.7 MEQ/L (21.0-32.0); BLOOD UREA NITROGEN 26 MG/DL (7-18); CHLORIDE 103 MEQ/L (98-107); GLOMERULAR FILTRATION RATE 56 ML/MIN (>89); POTASSIUM 3.6 MEQ/L (3.5-5.1); SODIUM (NA) 141 MEQ/L (136-145)
[2016-10-16 13:23] LABS: BLOOD, URINE NEG (NEG); COMMENT (UR) CULT NOT INDICATED; CULTURE IF INDICATED CULT NOT INDICATED; GLUCOSE,URINE NEG (NEG); KETONE, URINE NEG (NEG); NITRITE,URINE NEG (NEG); SQUAMOUS EPITHELIAL CELL URINE <1 /hpf (0-5); URINE COLOR LIGHT-YELLOW (YELLW/STRAW)
[2016-10-16 13:28] LABS: ALKALINE PHOSPHATASE 43 U/L (45-117); FREE T4 0.97 NG/DL (0.76-1.46); TOTAL BILIRUBIN ADULT 0.6 MG/DL (0.2-1.0)
== END ==
LOC: PLAB 09:46
PROVIDERS: ATTEND Internal Medicine
DX: R55 Syncope and collapse (principal); E53.8 Deficiency of other specified B group vitamins; I48.0 Paroxysmal atrial fibrillation; E03.9 Hypothyroidism, unspecified
CPT/HCPCS: 36415; 80053; 81001; 84439; 84443; 85025

== ENCOUNTER → 2017-05-31 | Outpatient (CLI) | payer MEDICARE ==
[~2017-05-31] MED LIST changes: +COLY4000S PO; +LINA145C PO; -OMEP20TA PO; +OMEP20TA93 PO
[2017-06-01 06:25] LABS: ALBUMIN 3.6 GM/DL (3.4-5.0)
[2017-06-01 06:27] LABS: DIRECT BILIRUBIN ADULT 0.1 MG/DL (0.0-0.2)
[2017-06-01 06:29] LABS: INDIRECT BILIRUBIN 0.4 MG/DL (0.0-0.8); TOTAL BILIRUBIN ADULT 0.5 MG/DL (0.2-1.0); TOTAL PROTEIN 6.9 GM/DL (6.4-8.2)
== END ==
LOC: PLAB 13:43
PROVIDERS: ATTEND Internal Medicine Gastroenterology
DX: R10.9 Unspecified abdominal pain (principal)
CPT/HCPCS: 36415; 80076; 82150; 82565; 83690; 84520

== ENCOUNTER 2017-06-06 13:58 | Emergency (ER) | payer MEDICARE ==
[~2017-06-06] VITALS: Ht 152.4 cm; Wt 54.0 kg
[~2017-06-06 13:58] MED LIST changes: -COLY4000S PO; -LINA145C PO
[2017-06-06 14:05] VITALS: BP 190/93; PULSE 73; RESP 18; TEMP 97.6; O2SAT 99
[2017-06-06] MEDS ORDERED: SODIUM CHLORIDE 0.9% FLUSH 10 ML FLUSH IV FLUSH PRN (15:30)
--- NOTE | 2017-06-06 15:54 | PD ---
HPI Chief Complaint: GI Complaint Time Seen by Provider: 15:27 Travel History International Travel<30 days: No Contact w/Intl Traveler<30days: No Traveled to known affect area: No History of Present Illness HPI 86-year-old female that presents to the ED for evaluation of constipation for the past 2 weeks. Per patient she is has not had a good bowel movement for the past 2 weeks. Per patient she feels very uncomfortable and feels like she has to go but nothing is coming out. She states that she feels bloated and feels pain in her upper abdomen. Per patient is been ongoing for 2 weeks. Per patient she went to see her GI doctor who was ordering a CAT scan but has not been able to get it yet. Patient has tried everything [id number] with no relief. She comes here today because the symptoms have not improved and she states she cannot wait. Has loss of appetite. Per patient the pain is 4/10 on the epigastric area. PFSH Past Medical History Arthritis: Yes Cancer: No Cardiovascular Problems: Yes (HTN) Diabetes: No Endocrine: No Gastrointestinal Disorders: No Genitourinary: No Hepatitis: No Hiatal Hernia: Yes Hypertension: Yes Immune Disorder: No Musculoskeletal: Yes (ARTHRITIS) Neurologic: No Psychiatric: No Reproductive: No Respiratory: Yes (SHORTNESS OF BREATH ON EXERTION) Thyroid Disease: No Menopausal: Yes Past Surgical History AICD: No Body Medical Devices: DENTAL Ear Surgery: Yes (BILATERAL CATARACTS) Joint Replacement: No Oral Surgery: Yes (DENTAL IMPLANTS) Pacemaker: No Other Surgery: Yes (BENIGN BREAST BIOPSY) Social History Alcohol Use: No Tobacco Use: No Substance Use: No Allergies-Medications (Allergen,Severity, Reaction): Coded Allergies: benazepril (Unverified Allergy, Severe, Cough, 10/06/16) captopril (Unverified Allergy, Severe, Cough, 10/06/16) enalaprilat (Unverified Allergy, Severe, Cough, 10/06/16) fosinopril (Unverified Allergy, Severe, Cough, 10/06/16) lisinopril (Unverified Allergy, Severe, Cough, 10/06/16) nitrofurantoin (Unverified Allergy, Severe, 10/06/16) quinapril (Unverified Allergy, Severe, Cough, 10/06/16) amoxicillin (Unverified Allergy, Intermediate, Rash, 10/06/16) Reported Meds & Prescriptions Reported Meds & Active Scripts Active Linzess (Linaclotide) 145 Mcg Cap 145 Mcg PO DAILY PRN Reported Vitamin E-400 (Vitamin E) 400 Unit Cap 1 Tab PO Vitamin D (Cholecalciferol) 5,000 Unit Tab 1 Tab PO WEEKLY Omeprazole 20 Mg Tab 20 Mg PO DAILY Methylprednisolone 4 Mg Tab 2 Mg PO DAILY Hydrochlorothiazide 12.5 Mg Tab 12.5 Mg PO DAILY Folate (Folic Acid) 1 Mg Tab 1 Mg PO DAILY Fluticasone Nasal [place] 50 Mcg/Act Naspr 50 Mcg EACH NARE BID 50 mcg/spray Cyanocobalamin Inj (Cyanocobalamin) 1,000 Mcg/Ml Inj 1,000 Mcg IM Q30D Amlodipine (Amlodipine Besylate) 5 Mg Tab 5 Mg PO DAILY Review of Systems Except as stated in HPI: all other systems reviewed are Neg Physical Exam Narrative GENERAL: SKIN: Warm and dry. HEAD: Atraumatic. Normocephalic. EYES: Pupils equal and round. No scleral icterus. No injection or drainage. ENT: No nasal bleeding or discharge. Mucous membranes pink and moist. Tongue is midline. No uvula deviation. NECK: Trachea midline. No JVD. CARDIOVASCULAR: Regular rate and rhythm. No murmurs, s3, s4. RESPIRATORY: No accessory muscle use. Clear to auscultation. Breath sounds equal bilaterally. GASTROINTESTINAL: Abdomen soft, tender to the epigastric area, nondistended. Hepatic and splenic margins not palpable. MUSCULOSKELETAL: Extremities without clubbing, cyanosis, or edema. No obvious deformities. Full range of motion of the upper and lower extremities bilaterally. 2+ pulses bilaterally. NEUROLOGICAL: Awake and alert. No obvious cranial nerve deficits. Motor grossly within normal limits. Five out of 5 muscle strength in the arms and legs. Normal speech. PSYCHIATRIC: Appropriate mood and affect; insight and judgment normal. Data Data Last Documented VS Vital Signs Date Time Temp Pulse Resp B/P (MAP) Pulse Ox O2 Delivery O2 Flow Rate FiO2 06/06/17 14:05 97.6 73 18 190/93 (125) 99 Orders Orders Complete Blood Count With Diff (06/06/17 15:28) Comprehensive Metabolic Panel (06/06/17 15:28) Lipase (06/06/17 15:28) Urinalysis - C+S If Indicated (06/06/17 15:28) Ct Abd/Pel W Iv Contrast(Rout) (06/06/17 15:28) Iv Access Insert/Monitor (06/06/17 15:28) Ecg Monitoring (06/06/17 15:28) Oximetry (06/06/17 15:28) Sodium Chloride 0.9% Flush (Ns Flush) (06/06/17 15:30) Iohexol 350 Inj (Omnipaque 350 Inj) (06/06/17 17:54) Labs Laboratory Tests Test 06/06/17 16:00 06/06/17 17:15 White Blood Count 6.9 TH/MM3 Red Blood Count 4.90 MIL/MM3 Hemoglobin 10.1 GM/DL Hematocrit 32.0 % Mean Corpuscular Volume 65.2 FL Mean Corpuscular Hemoglobin 20.6 PG Mean Corpuscular Hemoglobin Concent 31.5 % Red Cell Distribution Width 17.4 % Platelet Count 254 TH/MM3 Mean Platelet Volume 8.5 FL Neutrophils (%) (Auto) 81.8 % Lymphocytes (%) (Auto) 11.1 % Monocytes (%) (Auto) 5.4 % Eosinophils (%) (Auto) 0.4 % Basophils (%) (Auto) 1.3 % Neutrophils # (Auto) 5.6 TH/MM3 Lymphocytes # (Auto) 0.8 TH/MM3 Monocytes # (Auto) 0.4 TH/MM3 Eosinophils # (Auto) 0.0 TH/MM3 Basophils # (Auto) 0.1 TH/MM3 CBC Comment DIFF FINAL Differential Comment Blood Urea Nitrogen 17 MG/DL Creatinine 0.96 MG/DL Random Glucose 96 MG/DL Total Protein 7.6 GM/DL Albumin 4.1 GM/DL Calcium Level 9.3 MG/DL Alkaline Phosphatase 64 U/L Aspartate Amino Transf (AST/SGOT) 16 U/L Alanine Aminotransferase (ALT/SGPT) 18 U/L Total Bilirubin 0.7 MG/DL Sodium Level 143 MEQ/L Potassium Level 3.4 MEQ/L Chloride Level 108 MEQ/L Carbon Dioxide Level 25.7 MEQ/L Anion Gap 9 MEQ/L Estimat Glomerular Filtration Rate 55 ML/MIN Lipase 116 U/L Urine Color LIGHT-YELLOW Urine Turbidity CLEAR Urine pH 5.5 Urine Specific [place] 1.003 Urine Protein NEG mg/dL Urine Glucose (UA) NEG mg/dL Urine Ketones 10 mg/dL Urine Occult Blood NEG Urine Nitrite NEG Urine Bilirubin NEG Urine Urobilinogen LESS THAN 2.0 MG/DL Urine Leukocyte Esterase TRACE Urine WBC 3 /hpf Urine Transitional Epithelial Cells <1 /hpf Microscopic Urinalysis Comment CULT NOT INDICATED MDM Medical Decision Making Medical Screen Exam Complete: Yes Emergency Medical Condition: Yes Medical Record Reviewed: Yes Interpretation(s) CBC & BMP Diagram 06/06/17 16:00 Total Protein 7.6 #, Albumin 4.1, Calcium Level 9.3, Alkaline Phosphatase 64, Aspartate Amino Transf (AST/SGOT) 16, Alanine Aminotransferase (ALT/SGPT) 18, Total Bilirubin 0.7 lipase WNL Last Impressions Abdomen/Pelvis CT 06/06/17 1528 Signed Impressions: Service Date/Time: Tuesday, June 06, 2017 17:27 - CONCLUSION: No acute CT findings in the abdomen or pelvis. Timbo Jordan MD UA negative Differential Diagnosis acute Abdomen versus versus abdominal pain versus gastroenteritis versus diverticulitis versus obstruction Narrative Course 86-year-old here for evaluation of abdominal pain and constipation. Labs and imaging ordered. Labs and imaging show what appears to be constipation. Otherwise disease or obstruction. Patient was reassured. I do recommend that the patient follows up with her GI doctor. I will give her a short prescription for linzess to see if this could help her symptoms as she has tried multiple OTC meds. She agrees with plan. Told to continue taking MiraLAX daily. Follow -up with PCP. See ED for worsening symptoms. Diagnosis Primary Impression: Constipation Qualified Codes: K59.00 - Constipation, unspecified Patient Instructions: General Instructions Additional Instructions: Take MiraLAX [id number] daily. Take medication as prescribed. See ED if worsening symptoms. Follow-up with her GI doctor this week. Med/Other Pt SpecificInfo: Prescription(s) given Scripts Linaclotide (Linzess) 145 Mcg Cap 145 MCG PO DAILY Y for CONSTIPATION, #20 CAP 0 Refills Prov: Magi Sellers MD 06/06/17 Disposition: 01 DISCHARGE HOME Condition: Stable Vlad Chen Jun 06, 2017 15:54
[2017-06-06 16:28] LABS: AUTOMATED NEUTROPHIL # 5.6 TH/MM3 (1.8-7.7); BASOPHIL # 0.1 TH/MM3 (0-0.2); BASOPHIL % 1.3 % (0.0-2.0); EOSINOPHIL % 0.4 % (0.0-4.0); HEMOGLOBIN 10.1 GM/DL (11.6-15.3); LYMPH % 11.1 % (9.0-44.0); LYMPHOCYTE # 0.8 TH/MM3 (1.0-4.8); MEAN CELL VOLUME 65.2 FL (80.0-100.0); MEAN CORPUSCULAR HEMOGLOBIN 20.6 PG (27.0-34.0); MEAN CORPUSCULAR HGB CONC 31.5 % (32.0-36.0); MEAN PLATELET VOLUME 8.5 FL (7.0-11.0); MONO % 5.4 % (0.0-8.0); MONOCYTE # 0.4 TH/MM3 (0-0.9); NEUT % 81.8 % (16.0-70.0); PLATELET COUNT 254 TH/MM3 (150-450); RED CELL DISTRIBUTION WIDTH 17.4 % (11.6-17.2); WHITE BLOOD COUNT 6.9 TH/MM3 (4.0-11.0)
[2017-06-06 16:37] LABS: ALBUMIN 4.1 GM/DL (3.4-5.0); AST (GOT) 16 U/L (15-37); BICARBONATE 25.7 MEQ/L (21.0-32.0); BLOOD UREA NITROGEN 17 MG/DL (7-18); CALCIUM 9.3 MG/DL (8.5-10.1); CHLORIDE 108 MEQ/L (98-107); CREATININE 0.96 MG/DL (0.50-1.00); GLOMERULAR FILTRATION RATE 55 ML/MIN (>89); GLUCOSE,RANDOM 96 MG/DL (74-106); SODIUM (NA) 143 MEQ/L (136-145)
[2017-06-06 16:38] LABS: ALT (GPT) 18 U/L (10-53)
[2017-06-06 16:40] LABS: ALKALINE PHOSPHATASE 64 U/L (45-117); TOTAL BILIRUBIN ADULT 0.7 MG/DL (0.2-1.0); TOTAL PROTEIN 7.6 GM/DL (6.4-8.2)
[2017-06-06 17:53] LABS: BILIRUBIN, URINE NEG (NEG); BLOOD, URINE NEG (NEG); GLUCOSE,URINE NEG (NEG); KETONE, URINE 10 mg/dL (NEG); NITRITE,URINE NEG (NEG); PH, URINE 5.5 (5.0-8.5); TRANSITIONAL EPI CELLS, URINE <1 /hpf; URINE COLOR LIGHT-YELLOW (YELLW/STRAW); URINE LEUKOCYTE ESTERASE TRACE (NEG)
[2017-06-06] MEDS ORDERED: IOHEXOL 350 MG/ML 10 ML VIAL (for RAD DIAG) IVCONTRAST ONE (17:54)
--- NOTE | 2017-06-06 18:05 | RADRPT ---
EXAM DATE/TIME: 06/06/2017 17:27 [facility] COMPARISON: CT ABDOMEN & PELVIS W CONTRAST, March 26, 2016, 12:08. INDICATIONS : Constipation for 2 weeks. IV CONTRAST: 72 cc Omnipaque 350 (iohexol) IV ORAL CONTRAST: No oral contrast ingested. RADIATION DOSE: 6.64 CTDIvol (mGy) MEDICAL HISTORY : Cardiovascular disease. Hypertension. Hernia, hiatal. SURGICAL HISTORY : Benign breast biopsy ENCOUNTER: Initial ACUITY: 2 weeks PAIN SCALE: 0/10 LOCATION: abdominal TECHNIQUE: Volumetric scanning of the abdomen and pelvis was performed. Using automated exposure control and ad justment of the mA and/or kV according to patient size, radiation dose was kept as low as reasonably achievable to obtain optimal diagnostic quality images. DICOM format image data is available electro nically for review and comparison. FINDINGS: LOWER LUNGS: The visualized lower lungs are clear. LIVER: Tiny liver cysts are unchanged. No evidence of suspicious mass or biliary ductal dilatation. SPLEEN: Normal size without lesion. PANCREAS: Within normal limits. KIDNEYS: Lower pole right renal cyst is unchanged. No evidence of stone or hydronephrosis. ADRENAL GLANDS: Within normal limits. VASCULAR: Stable moderate atherosclerotic changes involving abdominal aorta and branch vessels. BOWEL/MESENTERY: Interval appendectomy. Colonic diverticulosis. No abnormal dilatation, wall thickening or focal infla mmatory changes identified. The colon is not significantly dilated or stool-filled. ABDOMINAL WALL: Within normal limits. RETROPERITONEUM: There is no lymphadenopathy. BLADDER: No wall thickening or mass. REPRODUCTIVE: Within normal limits. INGUINAL: There is no lymphadenopathy or hernia. MUSCULOSKELETAL: Previous low thoracic kyphoplasty. Degenerative changes. No acute bony findings. CONCLUSION: No acute CT findings in the abdomen or pelvis. Timbo Jordan MD on June 06, 2017 at 17:57 Board Certified Radiologist. This report was verified electronically.
[2017-06-06] MEDS ORDERED: COLY4000S PO (18:20)
[2017-06-06] MEDS ORDERED: LINA145C PO (18:20)
[2017-06-06 19:00] VITALS: BP 176/80
== END 2017-06-06 19:42 | disposition home or self-care (01) ==
LOC: NEPE 13:58
DX: K59.00 Constipation, unspecified (principal); I10 Essential (primary) hypertension; M19.90 Unspecified osteoarthritis, unspecified site
CPT/HCPCS: 74177; 80053; 81001; 83690; 85025; 99285; Q9967